=== PATIENT | female | born 1955 | race Hispanic/Latino ===

== ENCOUNTER 2018-11-10 13:37 | Emergency (ER) | payer OTHER ==
[~2018-11-10 13:37] MED LIST: ACET325T51 PO; AEC81 PO; AMLO5TAB9 PO; ATOR10 PO; CANA300T PO; CARV6.2579 PO; CHOL100040 PO; CILO50TA PO; FERR325T22 PO; LEVO100T12 PO; LOSA100T58 PO; METF-446 PO; PANT40TA PO
[2018-11-10] MEDS ORDERED: LORAZEPAM 2 MG/ML 1 ML VIAL ONE (14:03)
[2018-11-10 14:14] LABS: BASOPHILS % (AUTO) 1.1 % (0.0-5.0); EOSINOPHILS % (AUTO) 0.7 % (0.0-8.0); HEMATOCRIT 37.2 % (36-48); MEAN CORPUSCULAR HEMOGLOBIN 27.8 pg (27.0-33.0); MEAN CORPUSCULAR HGB CONC 32.9 g/dL (32.0-36.0); MEAN CORPUSCULAR VOLUME 84.6 fL (79-99); NEUTROPHILS % (AUTO) 56.2 % (40.0-77.0); PLATELET COUNT (AUTO) 314 K/uL (130-400); RED CELL DISTRIBUTION WIDTH 15.7 % (11.0-15.5); WHITE BLOOD COUNT (AUTO) 6.9 K/uL (4.8-10.8)
[2018-11-10 14:29] LABS: INR 0.95 (0.85-1.15); PARTIAL THROMBOPLASTIN TIME 24.3 SEC (26.3-35.5)
[2018-11-10 14:30] LABS: POTASSIUM 4.6 mmol/L (3.5-5.1)
[2018-11-10 14:32] LABS: ALBUMIN 4.3 g/dL (3.5-5.0); BILIRUBIN,TOTAL 0.3 mg/dL (0.2-1.0); TOTAL PROTEIN, SERUM 7.7 g/dL (6.0-8.3)
[2018-11-10] MEDS ORDERED: HYDRALAZINE HCL 20 MG/ML VIAL ONE (14:58)
[2018-11-10] MEDS ORDERED: AMLODIPINE BESYLATE 5 MG TAB PO ONE (15:59)
[2018-11-11] MEDS ORDERED: BYDUREON SQ (18:19)
[2018-11-11] MEDS ORDERED: RANI150T7 PO (18:19)
[2018-11-11] MEDS ORDERED: ATOR20TA65 PO (18:19)
[2018-11-11] MEDS ORDERED: OMEP40CA37 PO (18:19)
[2018-11-11] MEDS ORDERED: CILO100T PO (18:19)
[2018-11-11] MEDS ORDERED: CHOL200016 PO (18:19)
[2018-11-11] MEDS ORDERED: LOSA100T58 PO (18:19)
[2018-11-11] MEDS ORDERED: LUBI8CAP PO (18:19)
[2018-11-11] MEDS ORDERED: AMLO5TAB9 PO (18:19)
== END 2018-11-10 16:09 | disposition home or self-care (01) ==
LOC: EDH 13:37
DX: I10 Essential (primary) hypertension (principal); E11.9 Type 2 diabetes mellitus without complications; E78.5 Hyperlipidemia, unspecified; E07.9 Disorder of thyroid, unspecified; I25.10 Atherosclerotic heart disease of native coronary artery without angina pectoris
CPT/HCPCS: 36415; 71045; 80053; 84484; 85025; 85610; 85730; 93005; 96374; 96375; 99284; J0360; J2060

== ENCOUNTER 2018-11-12 08:42 | Observation (INO) | payer OTHER ==
[2018-11-10 12:31] VITALS: BP 203/90
[2018-11-10 12:36] LABS: BASOPHILS % (AUTO) 0.3 % (0.0-5.0); EOSINOPHILS % (AUTO) 1.1 % (0.0-8.0); HEMATOCRIT 36.3 % (36-48); LYMPHOCYTES % (AUTO) 33.6 % (21.0-51.0); MEAN CORPUSCULAR HEMOGLOBIN 27.3 pg (27.0-33.0); MEAN CORPUSCULAR HGB CONC 32.4 g/dL (32.0-36.0); MEAN CORPUSCULAR VOLUME 84.2 fL (79-99); MONOCYTES % (AUTO) 7.1 % (3.0-13.0); NEUTROPHILS % (AUTO) 57.9 % (40.0-77.0); PLATELET COUNT (AUTO) 305 K/uL (130-400); RED CELL DISTRIBUTION WIDTH 15.2 % (11.0-15.5); WHITE BLOOD COUNT (AUTO) 5.7 K/uL (4.8-10.8)
[2018-11-10 12:43] LABS: POTASSIUM 4.4 mmol/L (3.5-5.1)
[2018-11-10 12:49] LABS: INR 0.98 (0.85-1.15); PARTIAL THROMBOPLASTIN TIME 30.6 SEC (26.3-35.5); PROTHROMBIN TIME 10.3 SEC (9.6-11.6)
--- NOTE | 2018-11-10 13:01 | NUR ---
NOTE PT WITH ELEVATED BLOOD PRESSURE, SHE STATES THAT SHE DID NOT TAKE HER MEDS TODAY. NOTIFIED CASIMIRO THOMSON, STATES TO SEND TO ER, FOR BLOOD PRESSURE CONTROL .PT VERBALIZES UNDERSTANDING.
[2018-11-10] MEDS: CEFAZOLIN SODIUM 1 GM VIAL IVP SCH (13:15)
[2018-11-11] MEDS: CEFAZOLIN SODIUM 1 GM VIAL IVP SCH (13:15)
[~2018-11-12] VITALS: Ht 160 cm; Wt 69.8 kg
[2018-11-12] VITALS (10 sets, daily range): BP systolic 126–217; BP diastolic 51–93
[~2018-11-12 08:42] MED LIST changes: -ACET325T51 PO; -ATOR10 PO; +ATOR20TA65 PO; +BYDUREON SQ; -CANA300T PO; -CARV6.2579 PO; -CHOL100040 PO; +CHOL200016 PO; +CILO100T PO; -CILO50TA PO; -LEVO100T12 PO; +LUBI8CAP PO; +OMEP40CA37 PO; -PANT40TA PO; +RANI150T7 PO
--- NOTE | 2018-11-12 09:00 | NUR ---
ASSESSMENT PT HERE FOR PROCEDURE. VERY ANXIOUS. BP ELEVATED. DAUGHTER AT BEDSIDE ALONG WITH
[2018-11-12] MEDS ORDERED: SODIUM CHLORIDE 0.9% 1000ML 1,000 ML IV ONE (09:12)
--- NOTE | 2018-11-12 09:45 | NUR ---
BP INFORMED ALIX SOUZA OF ABNORMAL BP. ORDERS RECEIVED TO GIVE HYDRALAZINE 10MG IV NOW.
[2018-11-12] MEDS ORDERED: HYDRALAZINE HCL 20 MG/ML VIAL IV SCH (10:00)
--- NOTE | 2018-11-12 10:15 | NUR ---
ALIX THOMSON HERE. SPOKE TO PT AND FAMILY. ORDERS RECEIVED TO GIVE XANAX 0.5MG PO
[2018-11-12] MEDS ORDERED: ALPRAZOLAM 0.5 MG TABLET PO SCH (10:30)
[2018-11-12] MEDS ORDERED: BUPIVACAINE/PF 0.25% 30ML VIAL IJ ONE (14:30)
[2018-11-12] MEDS ORDERED: LIDOCAINE HCL 1% MDV 50ML VIAL ONE (14:31)
[2018-11-12] MEDS ORDERED: DEXTROSE 50%-WATER 50 ML DISP.SYRIN IV ONE (14:31)
[2018-11-12] MEDS ORDERED: CEFAZOLIN SODIUM 1 GM VIAL ONE (14:31)
--- NOTE | 2018-11-12 14:35 | NUR ---
LIZBETH NELSON RN INFORMED DR. BARNES OF GLUCOSE 73. ASYMPTOMATIC. ORDERS RECEIVED TO GIVE HALF AN AMP OF DEXTROSE
--- NOTE | 2018-11-12 14:40 | NUR ---
PROCEDURE PT TAKEN TO PROCEDURE VIA BED BY Kamila NELSON RN
[2018-11-12] MEDS ORDERED: DEXTROSE 50%-WATER 25 GM/50 ML VIAL IV SCH (14:45)
[2018-11-12] MEDS ORDERED: IOHEXOL-350 75 ML VIAL IV ONE (14:58)
[2018-11-12] MEDS ORDERED: MEPERIDINE-PF 25 MG/ML SYG ONE ×3 (14:58→17:41)
[2018-11-12] MEDS ORDERED: MIDAZOLAM HCL 1 MG/ML 2ML VIAL ONE ×3 (14:58→17:41)
[2018-11-12] MEDS ORDERED: THROMBIN-JMI 5000 UNIT/VIAL TP ONE (17:37)
[2018-11-12] MEDS ORDERED: OCTYL 2-CYANOACRYLATE 1 EACH TP ONE (18:02)
[2018-11-12] MEDS ORDERED: ONDANSETRON HCL 4 MG/2 ML VIAL IV PRN (18:30)
[2018-11-12] MEDS ORDERED: ALPRAZOLAM 0.5 MG TABLET PO PRN (18:30)
[2018-11-12] MEDS ORDERED: DEXTROSE 50%-WATER 50 ML DISP.SYRIN IV PRN (18:30)
[2018-11-12] MEDS ORDERED: ACETAMINOPHEN-CODEINE 300/30MG TAB PO PRN (18:30)
--- NOTE | 2018-11-12 19:00 | NUR ---
POST PROCEDURE RECEIVED PT FROM PRESERVATIONIST IN SEMI ROWE'S POSITION, A&OX3, CALM COOPERATIVE AND DOES NOT APPEAR TO BE IN ANY DISTRESS NOR ANY NEURO DEFICITS PRESENT. PT DENIES PAIN, SOB, NAUSEA. LEFT SHOULDER DRESSING DRY AND INTACT WITH SECURED WITH ARM SLING. PT ON BEDREST UNTIL AM. CALL LIGHT WITHIN REACH, FAMILY AT BEDSIDE.
--- NOTE | 2018-11-12 19:20 | NUR ---
HOSPITALIST PAGED TO NOTIFY OF PATIENT ARRIVAL TO ROOM. NO RETURN CALL RECEIVED.
[2018-11-12] MEDS: CILOSTAZOL 100 MG TAB PO SCH (20:19)
[2018-11-12] MEDS ORDERED: LOSARTAN 100 MG TABLET PO SCH (21:00)
[2018-11-12] MEDS ORDERED: FAMOTIDINE 20MG TAB 20 MG TAB PO SCH (21:00)
[2018-11-12] MEDS: INSULIN HUMULIN R 100 UNIT/ML 3ML SQ SCH (21:00)
[2018-11-12] MEDS ORDERED: ATORVASTATIN CALCIUM 20 MG TABLET PO SCH (21:00)
[2018-11-12] MEDS ORDERED: AMLODIPINE BESYLATE 5 MG TAB PO SCH (21:00)
[2018-11-12] MEDS ORDERED: SODIUM CHLORIDE 0.9% 10 ML VIAL ONE (23:20)
[2018-11-12] MEDS: CEFAZOLIN SODIUM 1 GM VIAL IVP SCH (23:23)
[2018-11-12] MEDS: ACETAMINOPHEN-CODEINE 300/30MG TAB PO PRN (23:28)
[2018-11-13 03:00] VITALS: BP 132/59
[2018-11-13] MEDS: ACETAMINOPHEN-CODEINE 300/30MG TAB PO PRN (03:57)
[2018-11-13] MEDS: INSULIN HUMULIN R 100 UNIT/ML 3ML SQ SCH (06:14)
[2018-11-13 07:00] VITALS: BP 103/54
--- NOTE | 2018-11-13 07:30 | NUR ---
ASSESSMENT ENCOUNTERED PT A&OX3, CALM COOPERATIVE AND DOES NOT APPEAR TO BE IN ANY DISTRESS NOR ANY NEURO DEFICITS PRESENT. PT DENIES PAIN, SOB, NAUSEA. LEFT SHOULDER DRESSING DRY INTACT AND SECURED WITH ARM SLING. PULSES AND LEADERSHIP INTERN STRENGTH STRONG TO ALL EXTREMITIES. PT IS AMBULATORY, GAIT STEADY AND STRONG WITH STAND BY ASSIST. CALL LIGHT WITHIN REACH, FAMILY AT BEDSIDE.
[2018-11-13] MEDS ORDERED: METFORMIN HCL 500 MG TABLET PO SCH (08:00)
[2018-11-13] MEDS: CEFAZOLIN SODIUM 1 GM VIAL IVP SCH (08:40)
[2018-11-13] MEDS: CILOSTAZOL 100 MG TAB PO SCH (08:40)
[2018-11-13] MEDS ORDERED: PANTOPRAZOLE SODIUM 40 MG TABLET.DR PO SCH (09:00)
[2018-11-13] MEDS ORDERED: ASPIRIN 81 MG EC TAB PO SCH (09:00)
[2018-11-13] MEDS ORDERED: CHOLECALCIFEROL 2000 UNIT PO SCH (09:00)
[2018-11-13] MEDS ORDERED: FERROUS SULFATE 325 MG TABLET.DR PO SCH (09:00)
[2018-11-13] MEDS ORDERED: DOXY100T2 PO (11:20)
== END 2018-11-13 12:51 | disposition home or self-care (01) ==
LOC: DAH 08:42 → 2AH 08:43
PROVIDERS: ADMIT Internal Medicine; ATTEND Internal Medicine
DX: I44.39 Other atrioventricular block (principal); E03.9 Hypothyroidism, unspecified; E11.9 Type 2 diabetes mellitus without complications; M06.9 Rheumatoid arthritis, unspecified; I65.22 Occlusion and stenosis of left carotid artery; Z95.0 Presence of cardiac pacemaker; E66.9 Obesity, unspecified; Z83.3 Family history of diabetes mellitus; Z80.9 Family history of malignant neoplasm, unspecified; Z79.899 Other long term (current) drug therapy
CPT/HCPCS: 33207; 33225; 36415; 71046; 80048; 82948 ×5; 85025; 85610; 85730; 93005 ×2; 96374; 96376; A4218; C1769 ×7; C1894 ×3; C1895; C1900; C2621; G0378 ×28; J0360; J0690 ×3; J2175 ×3; J2250 ×3; J3490 ×3; J7030; J7070; Q9967; 99156; 99157

== ENCOUNTER → 2019-01-26 | Outpatient (CLI) | payer OTHER ==
[~2019-01-26] MED LIST changes: +DOXY100T2 PO
== END | disposition home or self-care (01) ==
LOC: SHCH 07:33
PROVIDERS: ATTEND Internal Medicine Cardiovascular Disease
DX: I70.90 Unspecified atherosclerosis (principal); K55.059 Acute (reversible) ischemia of intestine, part and extent unspecified
CPT/HCPCS: 93975

== ENCOUNTER 2019-02-17 05:37 | Day surgery (SDC) | payer OTHER ==
[2019-02-13 12:54] VITALS: BP 165/80
[2019-02-13 13:03] LABS: BASOPHILS % (AUTO) 0.4 % (0.0-5.0); HEMATOCRIT 32.3 % (36-48); LYMPHOCYTES % (AUTO) 31.3 % (21.0-51.0); MEAN CORPUSCULAR HEMOGLOBIN 27.3 pg (27.0-33.0); MEAN CORPUSCULAR HGB CONC 33.2 g/dL (32.0-36.0); MEAN CORPUSCULAR VOLUME 82.2 fL (79-99); MONOCYTES % (AUTO) 7.5 % (3.0-13.0); NEUTROPHILS % (AUTO) 59.8 % (40.0-77.0); PLATELET COUNT (AUTO) 292 K/uL (130-400); RED BLOOD CELL COUNT(AUTO) 3.93 MIL/uL (4.00-5.50); RED CELL DISTRIBUTION WIDTH 14.9 % (11.0-15.5); WHITE BLOOD COUNT (AUTO) 6.1 K/uL (4.8-10.8)
[2019-02-13 13:10] LABS: APPEARANCE,URINE Clear (CLEAR); BILIRUBIN,URINE Negative (NEGATIVE); COLOR,URINE Yellow (YELLOW); GLUCOSE, URINE (UA) Negative (NEGATIVE); KETONES,URINE Negative (NEGATIVE); LEUKOCYTE ESTERASE ,URINE Negative (NEGATIVE); NITRATE,URINE Negative (NEGATIVE); OCCULT BLOOD,URINE Negative (NEGATIVE); PROTEIN,URINE Negative (NEGATIVE); UROBILINOGEN,URINE 0.2 mg/dL (0.2-1.0)
[2019-02-13 13:15] LABS: PARTIAL THROMBOPLASTIN TIME 32.1 SEC (26.3-35.5); PROTHROMBIN TIME 10.5 SEC (9.6-11.6)
[2019-02-13 13:18] LABS: CREATININE 1.2 mg/dL (0.5-1.5); POTASSIUM 5.1 mmol/L (3.5-5.1)
--- NOTE | 2019-02-16 13:16 | NUR ---
ABNORMAL HGB 10.7/HCT32.3 REPORTED TO CASIMIRO THOMSON, NO NEW ORDERS RECEIVED, OK TO PROCEED WITH PROCEDURE.
[~2019-02-17] VITALS: Ht 158.8 cm; Wt 70.8 kg
[2019-02-17] VITALS (28 sets, daily range): BP systolic 95–199; BP diastolic 46–95
[~2019-02-17 05:37] MED LIST changes: +CARV6.25 PO; -DOXY100T2 PO; +LEVO100T12 PO
--- NOTE | 2019-02-17 06:30 | NUR ---
ASSESSMENT PT HERE FOR PROCEDURE. VERY ANXIOUS. DAUGHTER AT BEDSIDE. DENIES ANY PAIN. STATES "I ALWAYS GET NERVOUS WHEN I HAVE A PROCEDURE."
[2019-02-17] MEDS ORDERED: SODIUM CHLORIDE 0.9% 1000ML 1,000 ML IV ONE (06:34)
--- NOTE | 2019-02-17 07:00 | NUR ---
BP INFORMED ALIX SOUZA OF HIGH BP AND PT STATING SHE GETS VERY ANXIOUS. ORDERS RECEIVED TO GIVE XANAX 0.5MG PO NOW AND IF BP REMAINS IN 170'S-180'S GIVE 10MG IF HYDRALAZINE IV.
[2019-02-17] MEDS ORDERED: ALPRAZOLAM 0.5 MG TABLET ONE (07:03)
[2019-02-17] MEDS ORDERED: LIDOCAINE HCL 1% 20 ML VIAL ONE (07:11)
[2019-02-17] MEDS ORDERED: SODIUM BICARB 50MEQ 50ML VIAL ONE (07:11)
[2019-02-17] MEDS ORDERED: HEPARIN SODIUM 1000UNIT/ML 10ML VIAL ONE (07:11)
[2019-02-17] MEDS ORDERED: MEPERIDINE-PF 25 MG/ML SYG ONE ×2 (07:12→08:43)
[2019-02-17] MEDS ORDERED: MIDAZOLAM HCL 1 MG/ML 2ML VIAL ONE ×2 (07:12→08:43)
[2019-02-17] MEDS ORDERED: NITROGLYCERIN 5 MG/ML 10 ML VIAL IV ONE (07:12)
[2019-02-17] MEDS ORDERED: IODIXANOL 320 MG/ML 100 ML VIAL ONE (07:12)
[2019-02-17] MEDS ORDERED: ALPRAZOLAM 0.5 MG TABLET PO ONE (08:20)
[2019-02-17] MEDS ORDERED: HYDRALAZINE HCL 20 MG/ML VIAL IV SCH (08:20)
[2019-02-17] MEDS ORDERED: SODIUM CHLORIDE 0.9% 1000ML 1,000 ML IV SCH (09:47)
[2019-02-17] MEDS ORDERED: ONDANSETRON HCL 4 MG/2 ML VIAL IVP PRN ×2 (10:00)
[2019-02-17] MEDS ORDERED: MORPHINE SULFATE 5 MG/ML VIAL IVP PRN ×2 (10:00)
[2019-02-17] MEDS ORDERED: ACETAMINOPHEN-CODEINE 300/30MG TAB PO PRN ×2 (10:00)
[2019-02-17] MEDS ORDERED: CLOPIDOGREL BISULFATE 300 MG TAB ONE (10:03)
[2019-02-17] MEDS ORDERED: ATROPINE SULFATE 0.1 MG/ML 10 ML SYG IVP ONE (13:28)
--- NOTE | 2019-02-17 15:00 | NUR ---
RECEIVED REPORT FROM CANDY NOBLES RN, PT IN NO DISTRESS. RIGHT ARM PUNCTURES SITE HAS DRESSING CLEAN NAD DRY, NO SIGNS OF ACTIVE BLEEDING OR HEMATOMA.
--- NOTE | 2019-02-17 15:00 | NUR ---
TRANSFERED CARE TO CARLY ACUNA , ADVISED OF PENDING TO VOID,NEXT NEURO CHECKS AND EVALUATED RIGHT AC (POST SHEATH REMOVAL), NO CONCERNS VOICED.
--- NOTE | 2019-02-17 18:00 | NUR ---
RIGHT BRACHIAL ARM DRESSING SHOWS NO ACTIVE BLEEDING OR HEMATOMA. PATIENT STATES FEELING WELL.FAMILY AT BED SIDE, QUESTIONS AND CONCERNS ADDRESSED.
== END 2019-02-17 19:49 | disposition home or self-care (01) ==
LOC: DAH 05:37
PROVIDERS: ATTEND Internal Medicine Cardiovascular Disease
DX: I70.298 Other atherosclerosis of native arteries of extremities, other extremity (principal); I70.0 Atherosclerosis of aorta; E11.9 Type 2 diabetes mellitus without complications; I10 Essential (primary) hypertension; E78.5 Hyperlipidemia, unspecified; M06.9 Rheumatoid arthritis, unspecified; E66.9 Obesity, unspecified; E03.9 Hypothyroidism, unspecified; Z79.899 Other long term (current) drug therapy; Z79.82 Long term (current) use of aspirin; Z98.890 Other specified postprocedural states; Z79.01 Long term (current) use of anticoagulants; I70.218 Atherosclerosis of native arteries of extremities with intermittent claudication, other extremity; E11.51 Type 2 diabetes mellitus with diabetic peripheral angiopathy without gangrene; I70.1 Atherosclerosis of renal artery
CPT/HCPCS: 36245 ×3; 36415 ×2; 37236; 37237 ×2; 71045; 75710; 75726 ×3; 80048; 81003; 82948 ×3; 85025; 85610; 85730 ×3; 93005; A4606; C1725 ×3; C1769 ×3; C1876 ×3; C1887 ×3; C1893; C1894 ×2; J1644 ×3; J2175 ×2; J2250 ×2; J3490 ×2; J7030; Q9967; 36215; 99156; 99157; J0461

== ENCOUNTER → 2021-03-28 | Outpatient (CLI) | payer OTHER ==
[~2021-03-28] MED LIST changes: +AMLO-257 PO; -AMLO5TAB9 PO; -CILO100T PO; +OMEP40CA21 PO; -OMEP40CA37 PO
== END | disposition home or self-care (01) ==
LOC: SHCH 10:23
PROVIDERS: ATTEND Internal Medicine Cardiovascular Disease
DX: I08.3 Combined rheumatic disorders of mitral, aortic and tricuspid valves (principal); R55 Syncope and collapse
CPT/HCPCS: 93306; 93356

== ENCOUNTER → 2021-04-20 | Outpatient (CLI) | payer OTHER | END | disposition home or self-care (01) | LOC: SHCH 10:39 | PROVIDERS: ATTEND Internal Medicine Cardiovascular Disease | DX: I65.23 Occlusion and stenosis of bilateral carotid arteries (principal); I70.293 Other atherosclerosis of native arteries of extremities, bilateral legs; R09.89 Other specified symptoms and signs involving the circulatory and respiratory systems | CPT/HCPCS: 93880; 93925 ==

== ENCOUNTER → 2021-05-17 | Outpatient (CLI) | payer OTHER ==
[~2021-05-17] MED LIST changes: +IOHEXOL 350 MG/ML 100ML INFUS..BTL IV ONE; +IOHEXOL-350 75 ML VIAL IV ONE
== END | disposition home or self-care (01) ==
LOC: RAH 07:37
PROVIDERS: ATTEND Internal Medicine Cardiovascular Disease
DX: I70.0 Atherosclerosis of aorta (principal); I70.293 Other atherosclerosis of native arteries of extremities, bilateral legs; I65.23 Occlusion and stenosis of bilateral carotid arteries
CPT/HCPCS: 70498; 75635; Q9967 ×2

== ENCOUNTER → 2024-03-06 | Outpatient (CLI) | payer OTHER ==
[~2024-03-06] MED LIST changes: -IOHEXOL 350 MG/ML 100ML INFUS..BTL IV ONE; -IOHEXOL-350 75 ML VIAL IV ONE; -LOSA100T58 PO; +LOSA100T59 PO
[2024-03-06 16:01] LABS: ALBUMIN 3.7 g/dL (3.5-5.0); BILIRUBIN,TOTAL 0.5 mg/dL (0.2-1.0); CREATININE 1.9 mg/dL (0.5-1.0); POTASSIUM 4.1 mmol/L (3.5-5.1); TOTAL PROTEIN, SERUM 7.2 g/dL (6.0-8.3)
== END | disposition home or self-care (01) ==
LOC: LAB 13:43
PROVIDERS: ATTEND Physician Assistant
DX: I25.10 Atherosclerotic heart disease of native coronary artery without angina pectoris (principal)
CPT/HCPCS: 36415; 80053

== ENCOUNTER → 2024-04-10 | Outpatient (CLI) | payer OTHER ==
[2024-04-10] MEDS: REGADENOSON 0.4 MG/5 ML PF SYG IVP ONE (11:46)
== END | disposition home or self-care (01) ==
LOC: SHCH 08:49
PROVIDERS: ATTEND Internal Medicine Cardiovascular Disease
DX: I25.10 Atherosclerotic heart disease of native coronary artery without angina pectoris (principal)
CPT/HCPCS: 78452; 93017; J2785; A9500 ×2; 96374

== ENCOUNTER → 2024-04-27 | Outpatient (CLI) | payer OTHER | END | disposition home or self-care (01) | LOC: SHCH 09:34 | PROVIDERS: ATTEND Internal Medicine Cardiovascular Disease | DX: I08.3 Combined rheumatic disorders of mitral, aortic and tricuspid valves (principal); R07.9 Chest pain, unspecified | CPT/HCPCS: 93306 ==